=== PATIENT | male | born 1985 | race Asian ===

== ENCOUNTER 2021-05-26 11:57 | Emergency (ER) | payer SELFPAY ==
[2021-05-26] MEDS ORDERED: SODIUM CHLORIDE 0.9% 1000 ML 1,000 ML IV ONE (12:08)
--- NOTE | 2021-05-26 12:10 | Emergency Department Report ---
ED General Adult HPI - General Chief complaint: Anxiety Stated complaint: ANXIETY Time Seen by Provider: 05/26/21 12:07 Source: patient Mode of arrival: Ambulatory Limitations: No Limitations - History of Present Illness Initial comments: 35-year-old male patient presents with complaints of chest pain, palpitations, and feeling very anxious today. Patient states his symptoms began after he took an energy pill that he bought from a gas station. Patient states he was driving and needed some extra energy to help him get through the trip. He reports the trip was 6 hours long. Patient admits to mild shortness of breath, but denies any cough, leg pain/swelling, hemoptysis, or history of DVT/PE/cancer. No other past medical history per patient. He describes the pain as feeling like his heart is pounding really hard in his chest - Related Data Allergies Allergy/AdvReac Type Severity Reaction Status Date / Time No Known Allergies Allergy Unverified 05/26/21 14:00 ED Review of Systems ROS: Stated complaint: ANXIETY Other details as noted in HPI Constitutional: denies: chills, fever, malaise Respiratory: shortness of breath. denies: cough Cardiovascular: chest pain Gastrointestinal: denies: abdominal pain, nausea, vomiting Skin: denies: change in color Neurological: denies: headache, numbness, paresthesias ED Physical Exam - General Limitations: No Limitations General appearance: alert, in no apparent distress - Head Head exam: Present: atraumatic, normocephalic - Eye Eye exam: Present: normal appearance. Absent: scleral icterus - Respiratory Respiratory exam: Present: normal lung sounds bilaterally. Absent: respiratory distress - Cardiovascular Cardiovascular Exam: Present: normal rhythm, tachycardia (Mild), normal heart sounds - GI/Abdominal GI/Abdominal exam: Present: soft. Absent: tenderness - Extremities Exam Extremities exam: Absent: calf tenderness (Minimal bilateral lower leg tenderness to palpation noted without swelling or overlying skin changes noted) - Neurological Exam Neurological exam: Present: alert, oriented X3, normal gait - Psychiatric Psychiatric exam: Present: normal affect, anxious - Skin Skin exam: Present: warm, dry, intact, normal color. Absent: rash ED Course Vital Signs 05/26/21 12:01 Temperature 98 F Pulse Rate 107 H Respiratory 16 Rate Blood Pressure 139/87 [Left] O2 Sat by Pulse 100 Oximetry ED Medical Decision Making - Lab Data Result diagrams: 05/26/21 13:47 05/26/21 13:47 Lab Results 05/26/21 05/26/21 05/26/21 Range/Units 13:47 13:47 13:47 WBC 9.0 (4.5-11.0) K/mm3 RBC 5.69 H (3.65-5.03) M/mm3 Hgb 17.6 H (11.8-15.2) gm/dl Hct 52.3 H (35.5-45.6) % MCV 92 (84-94) fl MCH 31 (28-32) pg MCHC 34 (32-34) % RDW 13.1 L (13.2-15.2) % Plt Count 203 (140-440) K/mm3 Lymph % (Auto) 11.6 L (13.4-35.0) % [place] % (Auto) 7.1 (0.0-7.3) % Eos % (Auto) 0.3 (0.0-4.3) % Baso % (Auto) 0.2 (0.0-1.8) % Lymph # (Auto) 1.0 L (1.2-5.4) K/mm3 [place] # (Auto) 0.6 (0.0-0.8) K/mm3 Eos # (Auto) 0.0 (0.0-0.4) K/mm3 Baso # (Auto) 0.0 (0.0-0.1) K/mm3 Seg Neutrophils % 80.8 H (40.0-70.0) % Seg Neutrophils # 7.3 (1.8-7.7) K/mm3 D-Dimer 386.73 H (0-234) ng/mlDDU Sodium 140 (137-145) mmol/L Potassium 4.2 (3.6-5.0) mmol/L Chloride 100.8 (98-107) mmol/L Carbon Dioxide 23 (22-30) mmol/L Anion Gap 20 mmol/L BUN 11 (9-20) mg/dL Creatinine 1.1 (0.8-1.3) mg/dL Estimated GFR > 60 ml/min BUN/Creatinine Ratio 10 % Glucose 116 H (75-100) mg/dL Calcium 9.1 (8.4-10.2) mg/dL Total Bilirubin 0.40 (0.1-1.2) mg/dL AST 35 (5-40) units/L ALT 43 (7-56) units/L Alkaline Phosphatase 90 (35-129) units/L Troponin T < 0.010 (0.00-0.029) ng/mL Total Protein 6.9 (6.3-8.2) g/dL Albumin 4.0 (3.9-5) g/dL Albumin/Globulin Ratio 1.4 % - EKG Data Interpretation: normal EKG - Radiology Data Radiology results: report reviewed CTA CHEST WITH CONTRAST INDICATION / CLINICAL INFORMATION: Chest pain. TECHNIQUE: Axial CT images were obtained through the chest after injection of 100 mL of Omnipaque 350 IV contrast. 3 plane MIP and/or 3D reconstructions were produced. All CT scans at this location are performed using CT dose reduction for ALARA by means of automated exposure control. COMPARISON: None available. FINDINGS: PULMONARY ARTERIES: No pulmonary emboli. THORACIC AORTA: No significant abnormality. HEART: No significant abnormality. CORONARY ARTERY CALCIFICATION: None. MEDIASTINUM / IAM: No significant abnormality. PLEURA: No pleural effusion. No pneumothorax. LUNGS: No acute air space or interstitial disease. ADDITIONAL FINDINGS: None. UPPER ABDOMEN: Hepatic steatosis. There is a 1.7 x 1.0 cm nodule near the gastroesophageal junction, presumably a lymph node. SKELETAL STRUCTURES: No significant osseous abnormality. IMPRESSION: 1. No CT evidence for pulmonary embolism. 2. No acute findings. 3. Hepatic steatosis. 4. Nodule adjacent to the gastroesophageal junction as described above is nonspecific but favors lymph node, likely reactive. Critical care attestation.: If time is entered above; I have spent that time in minutes in the direct care of this critically ill patient, excluding procedure time. ED Disposition Clinical Impression: Palpitations, Adverse effect of [employer] stimulant Disposition: 01 HOME / SELF CARE / HOMELESS Is pt being admited?: No Condition: Stable Instructions: Palpitations Referrals: PRIMARY CARE, [Primary Care Provider] - 3-5 Days [facility] [Provider Group] - 3-5 Days [facility] [Outside] - 3-5 Days Forms: Work/School Release Form(ED)
--- NOTE | 2021-05-26 12:54 | XRay Report ---
CHEST 2 VIEWS INDICATION / CLINICAL INFORMATION: chest pain. COMPARISON: None available. FINDINGS: SUPPORT DEVICES: None. HEART / MEDIASTINUM: No significant abnormality. LUNGS / PLEURA: No significant pulmonary or pleural abnormality. No pneumothorax. ADDITIONAL FINDINGS: No significant additional findings. IMPRESSION: 1. No acute findings. Signer Name: Drake Hanson MD Signed: 05/26/2021 12:48 PM Workstation Name: [id number]
[2021-05-26 14:26] LABS: Basophils % (Auto) 0.2 % (0.0-1.8); Eosinophils % (Auto) 0.3 % (0.0-4.3); Hematocrit 52.3 % (35.5-45.6); Hemoglobin 17.6 gm/dl (11.8-15.2); Lymphocytes % (Auto) 11.6 % (13.4-35.0); Mean Corpuscular HGB Conc 34 % (32-34); Mean Corpuscular Volume 92 fl (84-94); Monocytes # (Auto) 0.6 K/mm3 (0.0-0.8); Monocytes % (Auto) 7.1 % (0.0-7.3); Platelet Count 203 K/mm3 (140-440); Red Blood Count 5.69 M/mm3 (3.65-5.03); Red Cell Distribution Width 13.1 % (13.2-15.2)
[2021-05-26 14:45] LABS: Alanine Aminotransferase 43 units/L (7-56); BUN/Creatinine Ratio 10; Blood Urea Nitrogen 11 mg/dL (9-20); Calcium 9.1 mg/dL (8.4-10.2); Hemolysis Index 24
--- NOTE | 2021-05-26 17:17 | Cat Scan Report ---
CTA CHEST WITH CONTRAST INDICATION / CLINICAL INFORMATION: Chest pain. TECHNIQUE: Axial CT images were obtained through the chest after injection of 100 mL of Omnipaque 350 IV contrast. 3 plane MIP and/or 3D reconstructions were produced. All CT scans at this location are performed using CT dose reduction for ALARA by means of automated exposure control. COMPARISON: None available. FINDINGS: PULMONARY ARTERIES: No pulmonary emboli. THORACIC AORTA: No significant abnormality. HEART: No significant abnormality. CORONARY ARTERY CALCIFICATION: None. MEDIASTINUM / IAM: No significant abnormality. PLEURA: No pleural effusion. No pneumothorax. LUNGS: No acute air space or interstitial disease. ADDITIONAL FINDINGS: None. UPPER ABDOMEN: Hepatic steatosis. There is a 1.7 x 1.0 cm nodule near the gastroesophageal junction, presumably a lymph node. SKELETAL STRUCTURES: No significant osseous abnormality. IMPRESSION: 1. No CT evidence for pulmonary embolism. 2. No acute findings. 3. Hepatic steatosis. 4. Nodule adjacent to the gastroesophageal junction as described above is nonspecific but favors lymp h node, likely reactive. Signer Name: Rubén Franz MD Signed: 05/26/2021 5:13 PM Workstation Name: [id number]
[2021-05-26 17:53] VITALS: BP 132/85
== END 2021-05-26 17:57 | disposition home or self-care (01) ==
LOC: ED 11:57
DX: R00.2 Palpitations (principal); T43.605A Adverse effect of unspecified psychostimulants, initial encounter; Y92.89 Other specified places as the place of occurrence of the external cause
CPT/HCPCS: 36415; 71046; 71275; 80053; 84484; 85025; 85379; 96360; 99284; J7030; Q9967; Q0162